=== PATIENT | male | born 1955 | race African-American/Black ===

== ENCOUNTER 2017-12-31 14:07 | Inpatient (IN) | payer MEDICAID ==
[~2017-12-31] VITALS: Ht 177.8 cm; Wt 57.6 kg
[2017-12-31] MEDS ORDERED: VECURONIUM BROMIDE 10 MG/VIAL IV ONE ×2 (15:10→15:30)
[2017-12-31] MEDS ORDERED: ETOMIDATE 2MG/ML 10ML VIAL IV ONE ×2 (15:10→15:30)
[2017-12-31] MEDS ORDERED: ONDANSETRON HCL 4MG/2ML INJ IV STA (15:24)
[2017-12-31] MEDS ORDERED: PROPOFOL 10MG/ML 100ML 100 ML IV ONE (15:30)
[2017-12-31] MEDS ORDERED: HYDRALAZINE 20MG/ML VIAL IV ONE (15:45)
[2017-12-31] MEDS ORDERED: DEXAMETHASONE 10 MG/ML VIAL IV ONE (15:45)
[2017-12-31] MEDS ORDERED: LEVETIRACETAM 500MG PREMIX 100 ML IV ONE (15:45)
[2017-12-31] MEDS ORDERED: MANNITOL 12.5G (25%) VIAL 50ML IV ONE (16:00)
[2017-12-31 16:03] LABS: BASOPHILS % 1.1 % (0.0-2.0); EOSINOPHILS % 0.6 % (0.0-5.0); HEMATOCRIT. 30.9 % (42.0-52.0); HEMOGLOBIN. 10.5 g/dL (14.0-18.0); LYMPHOCYTES % 18.7 % (20.0-50.0); MEAN CORPUSCULAR HEMOGLOBIN 35.2 pg (28.0-32.0); MEAN CORPUSCULAR VOLUME 103.5 fL (80.0-94.0); MONOCYTES % 13.4 % (2.0-8.0); NEUTROPHILS % 66.2 % (40.0-76.0); PLATELET 143 x1000/uL (130-400); RED BLOOD CELL COUNT 2.98 mill/uL (4.7-6.1); RED CELL DISTRIBUTION WIDTH 15.2 % (11.6-14.6)
[2017-12-31 16:07] LABS: CHLORIDE 98 mEq/L (98-107)
[2017-12-31 16:08] LABS: PROTHROMBIN TIME 10.4 sec (9.1-11.1)
[2017-12-31 16:11] LABS: ETHANOL BLOOD 221 mg/dL
[2017-12-31 16:14] LABS: LDL CHOLESTEROL 47 mg/dL (5-100)
[2017-12-31] MEDS ORDERED: NICARDIPINE 40MG/200ML PREMIX 200 ML IV PRN (16:15)
[2017-12-31 16:29] LABS: CREATINE KINASE 1043 IU/L (39-308)
[2017-12-31 16:41] LABS: BG BASE EXCESS 1.1 mmol/L (-2.0-2.0); BG DEOXYHEMOGLOBIN 0.5 % (0.0-5.0); BG FRACTION INSPIRED OXYGEN 100; BG HCO3 ACT 24.4 mmol/L (22.0-26.0); BG METHEMOGLOBIN 0.6 % (0.0-1.5); BG OXYGEN SATURATION 99.5 % (92.0-98.5); BG OXYHEMOGLOBIN 97.9 % (94.0-97.0); BG PH 7.473 (7.350-7.450); BG PO2 480.2 mmHg (75.0-100.0); BG SAMPLE SITE RIGHT BRACHIAL; BG TIDAL VOLUME(mL) 500 mL; BG VENT MODE VENT - A/C; BG VENT RATE 14 set
[2017-12-31] MEDS ORDERED: PANTOPRAZOLE SODIUM 40 MG/VIAL IV NR (17:00)
[2017-12-31] MEDS ORDERED: IPRATROPIUM/ALBUTEROL 0.5-3(2.5)MG/3ML NEB HHN PRN (17:00)
[2017-12-31 20:00] VITALS: BP_SYST 116; BP_SYST 128; BP_DIAS 53; BP_DIAS 70
[2017-12-31] MEDS ORDERED: MANNITOL 20% (20GM/100ML) BAG 500ML PREMIX IV SCH (20:15)
[2017-12-31 20:30] VITALS: BP 121/76
[2017-12-31] MEDS: IPRATROPIUM/ALBUTEROL 0.5-3(2.5)MG/3ML NEB HHN SCH (20:51)
[2017-12-31 21:00] VITALS: BP 122/67
[2017-12-31] MEDS ORDERED: LEVETIRACETAM 500MG PREMIX 100 ML IV SCH (21:00)
[2017-12-31] MEDS: [UNRECOGNIZED DRUG - REMARK] IV SCH ×3 (21:42)
[2017-12-31] MEDS: CEFEPIME 2,000 MG in DEXT 5% WATER 100 ML IV SCH (21:43)
[2017-12-31] MEDS: LEVETIRACETAM 500MG in SODIUM CHLORIDE 0.9% 100ML IV SCH (21:45)
[2017-12-31] MEDS: MANNITOL 20% 500 ML IV SCH (21:46)
[2017-12-31] MEDS ORDERED: KCL 20MEQ/100ML PREMIX 100 ML IV NR (22:00)
[2017-12-31] MEDS: NICARDIPINE 100 MG in SODIUM CHLORIDE 0.9% 60 ML IV PRN (22:09)
[2017-12-31] MEDS: METRONIDAZOLE 500 MG PREMIX 100 ML IV SCH (23:07)
[2018-01-01] VITALS (77 sets, daily range): BP systolic 100–158; BP diastolic 63–82
[2018-01-01] MEDS: MANNITOL 20% 500 ML IV SCH ×2 (00:32→05:00)
[2018-01-01] MEDS: DEXAMETHASONE 4MG/ML 1ML VIAL IV SCH ×5 (00:32→23:14)
[2018-01-01] MEDS: IPRATROPIUM/ALBUTEROL 0.5-3(2.5)MG/3ML NEB HHN SCH ×4 (02:12→20:56)
[2018-01-01] MEDS: METRONIDAZOLE 500 MG PREMIX 100 ML IV SCH ×3 (05:00→21:21)
[2018-01-01] MEDS ORDERED: MORPHINE SULFATE 4 MG/ML CPJ (NOT FOR IM USE) IV ONE (07:34)
[2018-01-01 08:30] LABS: BG BASE EXCESS 2.2 mmol/L (-2.0-2.0); BG CARBOXYHEMOGLOBIN 0.4 % (0.5-1.5); BG DEOXYHEMOGLOBIN 1.3 % (0.0-5.0); BG FRACTION INSPIRED OXYGEN 40; BG METHEMOGLOBIN 0.6 % (0.0-1.5); BG OXYGEN SATURATION 98.7 % (92.0-98.5); BG OXYHEMOGLOBIN 97.7 % (94.0-97.0); BG PCO2 37.2 mmHg (35.0-45.0); BG PH 7.462 (7.350-7.450); BG PO2 151.3 mmHg (75.0-100.0); BG SAMPLE SITE RIGHT RADIAL; BG TIDAL VOLUME(mL) 500 mL; BG TOTAL HEMOGLOBIN 11.5 g/dL (12.0-18.0); BG VENT MODE VENT - A/C; BG VENT RATE 14 set
[2018-01-01] MEDS ORDERED: THIAMINE HCL 100 MG/1 ML 2ML VIAL IM SCH (09:00)
[2018-01-01] MEDS ORDERED: ZINC SULF/CUSO4 P-HYD/MANG/CR 10 ML VIAL IV SCH (09:00)
[2018-01-01] MEDS: CEFEPIME 2,000 MG in DEXT 5% WATER 100 ML IV SCH ×2 (09:21→21:20)
[2018-01-01] MEDS: LEVETIRACETAM 500MG in SODIUM CHLORIDE 0.9% 100ML IV SCH ×2 (09:21→20:39)
[2018-01-01] MEDS: PANTOPRAZOLE SODIUM 40 MG/VIAL IV SCH (09:21)
[2018-01-01] MEDS: NICARDIPINE 100 MG in SODIUM CHLORIDE 0.9% 60 ML IV PRN (10:55)
[2018-01-01] MEDS: DEXT 5%/LACTATED RINGERS 1,000 ML IV SCH (14:09)
[2018-01-01 20:24] LABS: HEMATOCRIT. 31.4 % (42.0-52.0); HEMOGLOBIN. 10.9 g/dL (14.0-18.0); MEAN CORPUSCULAR HEMOGLOBIN 36.1 pg (28.0-32.0); MEAN CORPUSCULAR VOLUME 103.7 fL (80.0-94.0); MEAN PLATELET VOLUME 7.8 fl (7.4-10.4); PLATELET 156 x1000/uL (130-400); RED BLOOD CELL COUNT 3.03 mill/uL (4.7-6.1); RED CELL DISTRIBUTION WIDTH 15.4 % (11.6-14.6)
[2018-01-01 20:29] LABS: CHLORIDE 101 mEq/L (98-107)
[2018-01-01 20:52] LABS: PLATELET ESTIMATE NORMAL
[2018-01-01] MEDS ORDERED: KCL 20MEQ/100ML PREMIX 100 ML IV NR (23:00)
[2018-01-01] MEDS: [UNRECOGNIZED DRUG - REMARK] IV SCH ×3 (23:14)
[2018-01-02] VITALS (122 sets, daily range): BP systolic 65–188; BP diastolic 38–170
[2018-01-02] MEDS ORDERED: ACETAMINOPHEN 650MG/20.3ML UDC NG PRN (01:30)
[2018-01-02] MEDS ORDERED: MORPHINE SULFATE 2 MG/ML CPJ (NOT FOR IM USE) IV PRN (01:30)
[2018-01-02] MEDS: MORPHINE SULFATE 4 MG/ML CPJ (NOT FOR IM USE) IV PRN ×2 (01:36→05:31)
[2018-01-02] MEDS: ACETAMINOPHEN 650MG/20.3ML UDC NG PRN (01:36)
[2018-01-02] MEDS: NICARDIPINE 100 MG in SODIUM CHLORIDE 0.9% 60 ML IV PRN (01:52)
[2018-01-02] MEDS: IPRATROPIUM/ALBUTEROL 0.5-3(2.5)MG/3ML NEB HHN SCH ×4 (02:48→20:19)
[2018-01-02] MEDS ORDERED: PHENYLEPHRINE 40 MG in DEXT 5% WATER 246 ML IV PRN (03:44)
[2018-01-02] MEDS ORDERED: PHENYLEPHRINE 40 MG in DEXT 5% WATER 250 ML IV PRN (03:46)
[2018-01-02 05:54] LABS: HEMATOCRIT. 32.5 % (42.0-52.0); MEAN CORPUSCULAR HEMOGLOBIN 35.6 pg (28.0-32.0); MEAN CORPUSCULAR VOLUME 105.5 fL (80.0-94.0); MEAN PLATELET VOLUME 8.1 fl (7.4-10.4); PLATELET 96 x1000/uL (130-400); RED BLOOD CELL COUNT 3.08 mill/uL (4.7-6.1); RED CELL DISTRIBUTION WIDTH 15.6 % (11.6-14.6)
[2018-01-02] MEDS: DEXAMETHASONE 4MG/ML 1ML VIAL IV SCH ×4 (06:36→23:16)
[2018-01-02] MEDS: METRONIDAZOLE 500 MG PREMIX 100 ML IV SCH ×3 (06:37→21:26)
[2018-01-02] MEDS: LEVETIRACETAM 500MG in SODIUM CHLORIDE 0.9% 100ML IV SCH (08:44)
[2018-01-02 08:58] LABS: NUCLEATED RED BLOOD CELLS 2 /100 WBC; PLATELET ESTIMATE DECREASED
[2018-01-02 09:35] LABS: BG BASE EXCESS -0.4 mmol/L (-2.0-2.0); BG CARBOXYHEMOGLOBIN 0.3 % (0.5-1.5); BG DEOXYHEMOGLOBIN 1.3 % (0.0-5.0); BG FRACTION INSPIRED OXYGEN 40; BG HCO3 ACT 23.2 mmol/L (22.0-26.0); BG METHEMOGLOBIN 0.3 % (0.0-1.5); BG OXYGEN SATURATION 98.7 % (92.0-98.5); BG OXYHEMOGLOBIN 98.1 % (94.0-97.0); BG PCO2 34.5 mmHg (35.0-45.0); BG PH 7.446 (7.350-7.450); BG PO2 161.2 mmHg (75.0-100.0); BG SAMPLE SITE RIGHT RADIAL; BG TIDAL VOLUME(mL) 500 mL; BG TOTAL HEMOGLOBIN 10.7 g/dL (12.0-18.0); BG VENT MODE VENT - A/C; BG VENT RATE 18 set
[2018-01-02] MEDS: CEFEPIME 2,000 MG in DEXT 5% WATER 100 ML IV SCH ×2 (09:35→20:27)
[2018-01-02] MEDS: PANTOPRAZOLE SODIUM 40 MG/VIAL IV SCH (09:35)
[2018-01-02] MEDS: LORAZEPAM 2MG/ML CPJ IV PRN (17:13)
[2018-01-02] MEDS ORDERED: PHENYTOIN SODIUM 500MG in SODIUM CHLORIDE 0.9% 50ML IV NR (18:00)
[2018-01-02] MEDS: DEXT 5%/LACTATED RINGERS 1,000 ML IV SCH (19:37)
[2018-01-02] MEDS: LEVETIRACETAM 1,000 MG in SODIUM CHLORIDE 0.9% 100 ML IV SCH (20:27)
[2018-01-02] MEDS: [UNRECOGNIZED DRUG - REMARK] IV SCH ×3 (21:27)
[2018-01-03] VITALS (101 sets, daily range): BP systolic 96–167; BP diastolic 58–99
[2018-01-03] MEDS: ACETAMINOPHEN 650MG/20.3ML UDC NG PRN ×3 (00:10→20:11)
[2018-01-03] MEDS: DEXT 5%/LACTATED RINGERS 1,000 ML IV SCH ×2 (00:33→14:42)
[2018-01-03] MEDS: LORAZEPAM 2MG/ML CPJ IV PRN ×3 (01:13→22:33)
[2018-01-03] MEDS: PHENYTOIN SODIUM 100MG/2ML VIAL IV SCH ×3 (01:24→18:16)
[2018-01-03] MEDS: IPRATROPIUM/ALBUTEROL 0.5-3(2.5)MG/3ML NEB HHN SCH ×4 (02:20→20:34)
[2018-01-03] MEDS: DEXAMETHASONE 4MG/ML 1ML VIAL IV SCH ×4 (05:05→23:53)
[2018-01-03] MEDS: METRONIDAZOLE 500 MG PREMIX 100 ML IV SCH ×3 (05:05→21:56)
[2018-01-03 05:58] LABS: HEMATOCRIT. 29.7 % (42.0-52.0); MEAN CORPUSCULAR HEMOGLOBIN 35.3 pg (28.0-32.0); MEAN CORPUSCULAR VOLUME 104.5 fL (80.0-94.0); RED BLOOD CELL COUNT 2.84 mill/uL (4.7-6.1); RED CELL DISTRIBUTION WIDTH 15.7 % (11.6-14.6)
[2018-01-03 06:08] LABS: CHLORIDE 106 mEq/L (98-107)
[2018-01-03 07:15] LABS: PLATELET ESTIMATE DECREASED
[2018-01-03 07:16] LABS: PLATELET 95 x1000/uL (130-400)
[2018-01-03] MEDS: PANTOPRAZOLE SODIUM 40 MG/VIAL IV SCH (08:27)
[2018-01-03] MEDS: LEVETIRACETAM 1,000 MG in SODIUM CHLORIDE 0.9% 100 ML IV SCH ×2 (08:27→20:11)
[2018-01-03] MEDS: CEFEPIME 2,000 MG in DEXT 5% WATER 100 ML IV SCH ×2 (08:33→21:10)
[2018-01-03] MEDS ORDERED: POTASSIUM CHLORIDE INJ 40 MEQ in DEXT 5% WATER 250 ML IV NR (13:30)
[2018-01-03] MEDS: [UNRECOGNIZED DRUG - REMARK] IV SCH ×3 (21:56)
[2018-01-03] MEDS: NICARDIPINE 100 MG in SODIUM CHLORIDE 0.9% 60 ML IV PRN (21:57)
[2018-01-04] VITALS (105 sets, daily range): BP systolic 93–161; BP diastolic 46–96
[2018-01-04] MEDS: PHENYTOIN SODIUM 100MG/2ML VIAL IV SCH ×3 (01:47→17:45)
[2018-01-04] MEDS: IPRATROPIUM/ALBUTEROL 0.5-3(2.5)MG/3ML NEB HHN SCH ×4 (01:48→20:50)
[2018-01-04] MEDS: DEXT 5%/LACTATED RINGERS 1,000 ML IV SCH ×2 (04:00→12:12)
[2018-01-04 05:38] LABS: HEMATOCRIT. 30.5 % (42.0-52.0); HEMOGLOBIN. 10.4 g/dL (14.0-18.0); MEAN CORPUSCULAR HEMOGLOBIN 35.4 pg (28.0-32.0); MEAN PLATELET VOLUME 8.2 fl (7.4-10.4); PLATELET 108 x1000/uL (130-400); RED BLOOD CELL COUNT 2.93 mill/uL (4.7-6.1); RED CELL DISTRIBUTION WIDTH 15.6 % (11.6-14.6)
[2018-01-04] MEDS: DEXAMETHASONE 4MG/ML 1ML VIAL IV SCH ×3 (05:39→17:45)
[2018-01-04] MEDS: METRONIDAZOLE 500 MG PREMIX 100 ML IV SCH ×3 (05:39→21:56)
[2018-01-04 06:27] LABS: CHLORIDE 104 mEq/L (98-107)
[2018-01-04 07:14] LABS: PLATELET ESTIMATE DECREASED
[2018-01-04] MEDS: PANTOPRAZOLE SODIUM 40 MG/VIAL IV SCH (08:39)
[2018-01-04] MEDS: LEVETIRACETAM 1,000 MG in SODIUM CHLORIDE 0.9% 100 ML IV SCH ×2 (08:39→21:10)
[2018-01-04] MEDS: CEFEPIME 2,000 MG in DEXT 5% WATER 100 ML IV SCH ×2 (08:58→20:04)
[2018-01-04] MEDS: NICARDIPINE 100 MG in SODIUM CHLORIDE 0.9% 60 ML IV PRN (11:00)
[2018-01-04] MEDS: ACETAMINOPHEN 650MG/20.3ML UDC NG PRN ×2 (12:09→20:04)
[2018-01-04] MEDS: [UNRECOGNIZED DRUG - REMARK] IV SCH ×3 (22:14)
[2018-01-05] VITALS (97 sets, daily range): BP systolic 107–142; BP diastolic 64–96
[2018-01-05] MEDS: DEXAMETHASONE 4MG/ML 1ML VIAL IV SCH ×4 (00:20→17:52)
[2018-01-05] MEDS: PHENYTOIN SODIUM 100MG/2ML VIAL IV SCH ×3 (01:58→17:52)
[2018-01-05 05:38] LABS: HEMOGLOBIN. 11.2 g/dL (14.0-18.0); MEAN CORPUSCULAR HEMOGLOBIN 35.1 pg (28.0-32.0); MEAN CORPUSCULAR VOLUME 103.2 fL (80.0-94.0); MEAN PLATELET VOLUME 8.5 fl (7.4-10.4); PLATELET 127 x1000/uL (130-400); RED CELL DISTRIBUTION WIDTH 14.6 % (11.6-14.6)
[2018-01-05] MEDS: METRONIDAZOLE 500 MG PREMIX 100 ML IV SCH ×3 (05:47→21:57)
[2018-01-05] MEDS: ACETAMINOPHEN 650MG/20.3ML UDC NG PRN ×2 (05:48→20:09)
[2018-01-05 06:00] LABS: CHLORIDE 102 mEq/L (98-107)
[2018-01-05] MEDS: IPRATROPIUM/ALBUTEROL 0.5-3(2.5)MG/3ML NEB HHN SCH ×3 (08:09→20:13)
[2018-01-05] MEDS: PANTOPRAZOLE SODIUM 40 MG/VIAL IV SCH (08:20)
[2018-01-05] MEDS: LEVETIRACETAM 1,000 MG in SODIUM CHLORIDE 0.9% 100 ML IV SCH ×2 (08:20→20:09)
[2018-01-05] MEDS: CEFEPIME 2,000 MG in DEXT 5% WATER 100 ML IV SCH ×2 (08:56→20:52)
[2018-01-05 09:02] LABS: PLATELET ESTIMATE SLIGHTLY DECREASED
[2018-01-05] MEDS: NICARDIPINE 100 MG in SODIUM CHLORIDE 0.9% 60 ML IV PRN ×2 (10:49→21:57)
[2018-01-05] MEDS ORDERED: POTASSIUM CHLORIDE INJ 40 MEQ in DEXT 5% WATER 250 ML IV NR (12:00)
[2018-01-05] MEDS: DEXT 5%/LACTATED RINGERS 1,000 ML IV SCH (20:09)
[2018-01-05] MEDS: [UNRECOGNIZED DRUG - REMARK] IV SCH ×3 (22:56)
[2018-01-06] VITALS (75 sets, daily range): BP systolic 116–160; BP diastolic 65–105
[2018-01-06] MEDS: DEXAMETHASONE 4MG/ML 1ML VIAL IV SCH ×4 (00:07→17:55)
[2018-01-06] MEDS: PHENYTOIN SODIUM 100MG/2ML VIAL IV SCH ×3 (01:51→17:55)
[2018-01-06] MEDS: IPRATROPIUM/ALBUTEROL 0.5-3(2.5)MG/3ML NEB HHN SCH ×4 (01:52→20:44)
[2018-01-06] MEDS: METRONIDAZOLE 500 MG PREMIX 100 ML IV SCH ×3 (06:21→21:32)
[2018-01-06] MEDS: PANTOPRAZOLE SODIUM 40 MG/VIAL IV SCH (08:20)
[2018-01-06] MEDS: CEFEPIME 2,000 MG in DEXT 5% WATER 100 ML IV SCH ×2 (08:20→21:31)
[2018-01-06] MEDS: ACETAMINOPHEN 650MG/20.3ML UDC NG PRN (08:59)
[2018-01-06] MEDS: LEVETIRACETAM 1,000 MG in SODIUM CHLORIDE 0.9% 100 ML IV SCH ×2 (08:59→21:16)
[2018-01-06] MEDS: DEXT 5%/LACTATED RINGERS 1,000 ML IV SCH ×2 (13:22→22:40)
[2018-01-07] VITALS (10 sets, daily range): BP systolic 148–180; BP diastolic 95–111
[2018-01-07] MEDS: DEXAMETHASONE 4MG/ML 1ML VIAL IV SCH ×3 (00:14→12:13)
[2018-01-07] MEDS: [UNRECOGNIZED DRUG - REMARK] IV SCH ×3 (00:14)
[2018-01-07] MEDS: IPRATROPIUM/ALBUTEROL 0.5-3(2.5)MG/3ML NEB HHN SCH ×2 (01:24→09:26)
[2018-01-07] MEDS: PHENYTOIN SODIUM 100MG/2ML VIAL IV SCH ×2 (01:47→09:36)
[2018-01-07] MEDS: METRONIDAZOLE 500 MG PREMIX 100 ML IV SCH (05:36)
[2018-01-07] MEDS: ACETAMINOPHEN 650MG/20.3ML UDC NG PRN (08:04)
[2018-01-07] MEDS: PANTOPRAZOLE SODIUM 40 MG/VIAL IV SCH (08:04)
[2018-01-07] MEDS: CEFEPIME 2,000 MG in DEXT 5% WATER 100 ML IV SCH (08:05)
[2018-01-07] MEDS: LEVETIRACETAM 1,000 MG in SODIUM CHLORIDE 0.9% 100 ML IV SCH (09:40)
[2018-01-07] MEDS ORDERED: MORPHINE SULFATE 4 MG/ML CPJ (NOT FOR IM USE) IV PRN (13:30)
[2018-01-08 08:00] VITALS: BP 63/40
[2018-01-08 12:00] VITALS: BP 63/40
== END 2018-01-08 17:05 | disposition expired | DRG 21 ==
LOC: ER 14:52 → MICUNO 15:57 → EDBEDREQTM 15:59 → EDBEDREQ 15:59 → EDBEDREQSVC 15:59 → ENRESERV 16:20 → 5EST 20:36 → MICUNO 20:37 → 5EST 01-06 22:04
PROVIDERS: ADMIT Internal Medicine; ATTEND Internal Medicine
PROC: 0BH17EZ Insertion of Endotracheal Airway into Trachea, Via Natural or Artificial Opening (ICD-10-PCS; 2017-12-31)
PROC: 5A1955Z Respiratory Ventilation, Greater than 96 Consecutive Hours (ICD-10-PCS; 2017-12-31)
PROC: 06HY33Z Insertion of Infusion Device into Lower Vein, Percutaneous Approach (ICD-10-PCS; 2017-12-31)
PROC: 009600Z Drainage of Cerebral Ventricle with Drainage Device, Open Approach (ICD-10-PCS; principal; 2018-01-01)
DX: I61.3 Nontraumatic intracerebral hemorrhage in brain stem (principal); J96.00 Acute respiratory failure, unspecified whether with hypoxia or hypercapnia; J69.0 Pneumonitis due to inhalation of food and vomit; E43 Unspecified severe protein-calorie malnutrition; G93.40 Encephalopathy, unspecified; G91.9 Hydrocephalus, unspecified; R56.9 Unspecified convulsions; M62.82 Rhabdomyolysis; N17.9 Acute kidney failure, unspecified; I95.9 Hypotension, unspecified; I61.5 Nontraumatic intracerebral hemorrhage, intraventricular; R40.2430 Glasgow coma scale score 3-8, unspecified time; R00.1 Bradycardia, unspecified; Z66 Do not resuscitate; T51.0X1A Toxic effect of ethanol, accidental (unintentional), initial encounter; Y90.7 Blood alcohol level of 200-239 mg/100 ml; E87.6 Hypokalemia; F10.229 Alcohol dependence with intoxication, unspecified; D64.9 Anemia, unspecified; I10 Essential (primary) hypertension; Z68.1 Body mass index [BMI] 19.9 or less, adult; Y92.89 Other specified places as the place of occurrence of the external cause
CPT/HCPCS: 31500; 36415; 36556; 36600; 71045; 80048; 82375; 82550; 82805; 82962; 83721; 83880; 84484; 93005; 93970; 94002; 94003; 94640; 96365; 96375; 99291; C9113; G0482; J0360; J0692; J1100; J1165; J1953; J2060; J2150; J2270; J2405; J2704; J3411; J3480; J3490; J7040; J7050; J7060; J7121; J7620